=== PATIENT | female | born 1990 ===

== ENCOUNTER 2017-07-09 15:50 | Emergency (ER) | payer OTHER ==
[2017-07-09 16:48] VITALS: BMI 45.6
--- NOTE | 2017-07-09 16:59 | OBHP ---
Datetime: 07/09/2017 16:51 IP Adm Impression: , intrauterine ; No Active Labor IP Admit Plan: Observation/Evaluation Admit Comment, IP Provider: 26-year-old 010 at 28 weeks gestational age complains of vaginal s potting. Patient denies any leakage of fluids or contractions. Patient denies any dysuria. Patient re ports good movement. Past medical history none Past surgical history none Medications vitamins No known drug allergies Social history no tobacco, no drugs, no alcohol Assessment: No evidence of labor at this time. Maternal well-being and well-being reassuring at this time. Plan: Continue observation Check urinalysis Check cervical length measurement ultrasound Discussed plan with patient AND questions answered. Extremities - PN: Normal Abdomen - PN: Normal Back - PN: Normal Neurologic - PN: Normal General - PN: Normal FHR - Baseline A Provider: 130s-140s Membranes, Provider: Intact Contraction Comments Provider: none Comments, ACOG Physical Exam: Sterile speculum exam: Cervix long, closed, posterior No discharge, no fluid Small vaginal abrasion near introitus with slight amount of blood. No active bleeding. EGA AdmitDate IP: 28.0 Vital Signs Provider: Reviewed; Within Normal Limits IP Chief Complaint: Vaginal bleeding NICHD Variability Prov Fetus A: Moderate 6-25bpm FHR Category Provider Fetus A: Category I NICHD Decel Fetus A IP Provider: None Dilatation, Provider: 0 Effacement, Provider: 0 Station, Provider: -4 Genitourinary Exam: Normal
[2017-07-09 17:51] LABS: SQUAMOUS EPITHIAL 6 /hpf (0-5); URINE BACTERIA RARE (<OCC); URINE BILIRUBIN NEGATIVE (NEGATIVE); URINE BLOOD NEGATIVE (NEGATIVE); URINE CLARITY CLOUDY (Clear); URINE COLOR YELLOW (YELLOW); URINE GLUCOSE (UA) NEG (Normal); URINE LEUKOCYTE ESTERASE SMALL Leu/uL (Negative); URINE PROTEIN NEGATIVE (NEGATIVE); URINE UROBILINOGEN 0.2-1.0 mg/dL (0.2-1.0)
--- NOTE | 2017-07-09 17:59 | US ---
PROCEDURE: Limited Transvaginal Obstetric Ultrasonography HISTORY: CERVICAL LENGTH ONLY PER COMPARISON: None available. TECHNIQUE: Limited ultrasonography of the cervix was performed utilizing transvaginal technique. FINDINGS: Cervical length measures 4.0 cm with a closed internal os. No discrete cervical mass or cysts appreciated. Cephalad presentation of intrauterine noted. IMPRESSION: As above.
[2017-07-13 20:23] VITALS: BP 112/62; PULSE 74; RESP 20; TEMP 97.7; O2SAT 98
== END 2017-07-09 18:40 | disposition home or self-care (01) ==
LOC: H.EROB2 15:50
DX: O26.853 Spotting complicating pregnancy, third trimester (principal); Z3A.28 28 weeks gestation of pregnancy

== ENCOUNTER 2017-09-27 14:58 | Inpatient (IN) | payer OTHER ==
[2017-09-27 15:37] VITALS: BMI 46.4
[2017-09-27] MEDS: Lactated Ringer's 1,000 ML IV SCH (17:03)
--- NOTE | 2017-09-27 18:04 | OBADHP ---
Datetime: 09/27/2017 17:59 IP Adm Impression Other: decreased fm Admit Comment, IP Provider: Discussed with pt plan of action Admit and for cervidil Extremities - PN: Abnormal Abdomen - PN: Abnormal Breast - PN: Normal Lungs - PN: Normal Heart - PN: Normal Thyroid - PN: Normal Neurologic - PN: Normal HEENT - PN: Normal General - PN: Normal Presentation-Admit: CephALIC FHR - Baseline A Provider: 140-150 Membranes, Provider: Intact Contraction Comments Provider: irreg Comments, ACOG Physical Exam: Abd gravid NT fundus at term , pelvic as above and leg with mild earl edema but no calf tenderness or hypereflexia Gestation - Est Wks by US: 39+ IP Hx Assessment: The History has been Reviewed and is Current IP Chief Complaint: Decreased movement NICHD Variability Prov Fetus A: Moderate 6-25bpm NICHD Accel Fetus A IP Provider: 10X10 NICHD Decel Fetus A IP Provider: None Dilatation, Provider: closed Effacement, Provider: soft Genitourinary Exam: Normal DTRs - PN: Normal EGA AdmitDate IP: 39.3 IP Adm Impression: Term, intrauterine IP Admit Plan: Admit to unit; Initiate labor induction protocol Datetime: 07/09/2017 16:51 Back - PN: Normal Vital Signs Provider: Reviewed; Within Normal Limits FHR Category Provider Fetus A: Category I Station, Provider: -4
[2017-09-27 20:14] LABS: BASO # 0.1 K/uL (0.0-0.2); EOS # 0.1 K/uL (0.0-0.7); EOS % 0.7 % (0.0-4.0); HEMOGLOBIN 11.6 g/dL (12.0-16.0); LYMPH # 2.5 K/uL (1.0-4.3); LYMPH % 18.6 % (20.0-40.0); MEAN CELL VOLUME 87.4 fl (81.0-99.0); MEAN CORPUSCULAR HEMOGLOBIN 28.9 pg (27.0-31.0); MEAN CORPUSCULAR HGB CONC 33.1 g/dL (33.0-37.0); MEAN PLATELET VOLUME 8.6 fl (7.2-11.7); MONO # 1.2 K/uL (0.0-0.8); MONO % 8.9 % (0.0-10.0); NEUT # 9.6 K/uL (1.8-7.0); NEUT % 70.8 % (50.0-75.0); NRBC % 0.1 % (0.0-0.0); RBC 4.02 Mil/uL (3.80-5.20); RED CELL DISTRIBUTION WIDTH 13.6 % (11.5-14.5); WHITE BLOOD COUNT 13.5 K/uL (4.8-10.8)
[2017-09-28] MEDS: Lactated Ringer's 1,000 ML IV SCH (02:00)
--- NOTE | 2017-09-28 07:44 | OBPN ---
Datetime: 09/28/2017 07:41 IP Procedures Other: cervidil insertion IP Progress Impression: Reassuring heart rate IP Progress Plan: Continue present management; Cervical Ripening Membranes, Provider: Intact Contraction Comments Provider: irregular FHR - Baseline A Provider: 140 Gestation - Est Wks by US: 39+ IP Progress Note Comment: Cervidil was removed earlier and 2nd insert placed Continue cervical ripen ing and monitoring NICHD Accel Fetus A IP Provider: 10X10 NICHD Variability Prov Fetus A: Moderate 6-25bpm Dilatation, Provider: FT Effacement, Provider: soft NICHD Decel Fetus A IP Provider: None Datetime: 09/27/2017 17:59 Presentation-Admit: CephALIC Datetime: 07/09/2017 16:51 Vital Signs Provider: Reviewed; Within Normal Limits FHR Category Provider Fetus A: Category I Station, Provider: -4
[2017-09-29] MEDS: Lactated Ringer's 1,000 ML IV SCH ×3 (07:50→20:25)
[2017-09-29] MEDS ORDERED: cefOXitin Sodium 1 GM in Sodium Chloride 0.9% 100 ML IVPB STA (07:56)
[2017-09-29] MEDS ORDERED: Oxytocin 30 units/LR 500ML 30 U/500 ML BAG IV ONE (07:57)
[2017-09-29] MEDS ORDERED: cefOXitin IV 1 gm in Dextrose 1 GM/50 ML BAG IVPB STA (08:01)
[2017-09-29] MEDS ORDERED: cefOXitin IV 1 gm in Dextrose 1 GM/50 ML BAG IVPB ONE (08:03)
[2017-09-29] MEDS ORDERED: Oxytocin 30 units/LR 500ML 30 UNITS/500 ML BAG IV ONE (08:03)
[2017-09-29] MEDS ORDERED: Morphine 1 mg/ml preservative-free Inj(Duramorph) ONE (10:33)
--- NOTE | 2017-09-29 12:06 | OBDS ---
DELIVERY PERSONNEL Delivery Doctor: Michael Harrison MD Scrub Nurse: Nydia Cano OBT Tin Assorter: Ashlie Luke RN Anesthesiologist: Dr. [employer] Development Analyst: Fox Baez MD MATERNAL INFORMATION Delivery Anesthesia: Spinal Medications in Delivery: Pitocin 30 units Placenta Cultured: No Other Maternal Complications: decreased FM Provider Comments: see surgeons dictated note LABOR SUMMARY EDC: 10/01/2017 00:00 No. Babies in Womb: 1 Attempted: No Labor Anesthesia: None LABOR INFORMATION Reason for Induction: Other Reason for Induction Other: Decreased movement Cervical Ripening Agents: Cervidil Oxytocin: N/A Group B Beta Strep: Negative Steroids Given: None Reason Steroids Not Administered: Not Applicable MEMBRANES Membranes Rupture Method: Artificial Rupture of Membranes: 09/29/2017 11:08 Length of Rupture (hrs): 0.17 Amniotic Fluid Color: Light Meconium Amniotic Fluid Amount: Moderate Amniotic Fluid Odor: Normal STAGES OF LABOR Stage 3 hrs: 0 Stage 3 min: 1 VAGINAL DELIVERY Episiotomy: None Laceration Extension: N/A Laceration Type: None Laceration Repair: Not Applicable Sponge Count Correct: Yes Sharps Count Correct: Yes Count Comment: count correct x3 CSECTION DELIVERY Primary Indication: Failed Induction Other Primary Indication: patient request/decreased movement CSection Urgency: Elective CSection Incidence: Primary Labor: No Labor Elective: Elective CSection Incision: Lower Uterine Transverse Uterine Closure: Double-layer closure BABY A INFORMATION Delivery Date/Time: 09/29/2017 11:18 Method of Delivery: Born in Route : No : N/A Forceps: N/A Vacuum Extraction: N/A Shoulder Dystocia : No SHOULDER DYSTOCIA BABY A Infant Delivery Date/Time: 09/29/2017 11:18 PRESENTATION/POSITION BABY A Presentation: Cephalic Cephalic Presentation: Vertex Breech Presentation: N/A PLACENTA INFORMATION BABY A Placenta Delivery Time : 09/29/2017 11:19 Placenta Method of Delivery: Spontaneous Placenta Status: Delivered SCORES BABY A Heart Rate 1 min: >100 bpm Resp Effort 1 min: Good Cry Reflex Irritability 1 min: Cough or Sneeze or Pulls Away Muscle Tone 1 min: Active Motion Color 1 min: Body Storla, Extremities Blue Resuscitation Effort 1 min: Tactile Stimulation SCORE 1 MIN: 9 Heart Rate 5 min: >100 bpm Resp Effort 5 min: Good Cry Reflex Irritability 5 min: Cough or Sneeze or Pulls Away Muscle Tone 5 min: Active Motion Color 5 min: Body Storla, Extremities Blue Resuscitation Effort 5 min: Tactile Stimulation SCORE 5 MIN: 9 IDENTIFICATION/MEDS BABY A ID Band Number: [id number]
[2017-09-29] MEDS ORDERED: Oxycodone/Acetaminophen 5/325 mg Tab PO PRN (12:08)
[2017-09-29] MEDS ORDERED: cefOXitin Sodium 1 GM in Sodium Chloride 0.9% 100 ML IVPB SCH ×2 (12:15→17:00)
[2017-09-29] MEDS ORDERED: DiphenhydrAMINE 50 mg/ml Inj IVP PRN ×2 (12:49→15:36)
[2017-09-29] MEDS ORDERED: Lactated Ringer's 1,000 ML IV SCH (14:15)
[2017-09-29] MEDS: cefOXitin IV 1 gm in Dextrose 1 GM/50 ML BAG IVPB SCH (18:47)
[2017-09-29] MEDS: Oxycodone/Acetaminophen 5/325 mg Tab PO PRN (20:23)
[2017-09-30] MEDS: Oxycodone/Acetaminophen 5/325 mg Tab PO PRN ×4 (00:35→17:42)
[2017-09-30] MEDS: cefOXitin IV 1 gm in Dextrose 1 GM/50 ML BAG IVPB SCH ×2 (00:38→08:30)
[2017-09-30] MEDS: Lactated Ringer's 1,000 ML IV SCH (05:40)
[2017-09-30 06:18] LABS: HEMOGLOBIN 10.1 g/dL (12.0-16.0); MEAN CELL VOLUME 86.1 fl (81.0-99.0); MEAN CORPUSCULAR HEMOGLOBIN 29.4 pg (27.0-31.0); MEAN CORPUSCULAR HGB CONC 34.2 g/dL (33.0-37.0); RBC 3.44 Mil/uL (3.80-5.20); RED CELL DISTRIBUTION WIDTH 13.1 % (11.5-14.5); WHITE BLOOD COUNT 12.6 K/uL (4.8-10.8)
--- NOTE | 2017-09-30 07:34 | OBPPN ---
Datetime: 09/30/2017 07:29 PP Pain Prov: Within normal limits PP Pain Prov comment: Denies SOB chest or leg pains PP Nausea Prov: Denies PP Flatus Prov: No PP BM Prov: No PP Breasts Prov: Normal PP Lungs Prov: Normal PP Abdomen/Uterus Prov: Abnormal PP Lochia Prov: Normal PP Vulva/Perineum Prov: Normal PP CVA Tenderness Prov: Normal PP Extremities Prov: Normal PP C/S Incision Prov: Normal PP Progress Prov: Normal PP Comments Phys Exam Prov: breast NE, breast feeding; Abd soft ND, depressible fundus firm at umb, dressing intact no sign of active bleeding Ext no calf tenderness PP Impression Prov: Normal progression PP Plan Prov: Continue present management PP Progress Note Prov: advance diet as tolerated OOB and ambulation and encourage po fluids Vital Signs Provider PP: Reviewed
[2017-10-01] MEDS: Oxycodone/Acetaminophen 5/325 mg Tab PO PRN ×3 (00:04→23:12)
--- NOTE | 2017-10-01 13:30 | OBPPN ---
Datetime: 10/01/2017 13:23 PP Pain Prov: Within normal limits PP Pain Prov comment: no SOB,chest or leg pains PP Nausea Prov: Denies PP Flatus Prov: No PP BM Prov: No PP Nausea Prov comment: Denies C/F PP Flatus Prov comment: voiding well PP Breasts Prov: Normal PP Lungs Prov: Normal PP Abdomen/Uterus Prov: Abnormal PP Lochia Prov: Normal PP Vulva/Perineum Prov: Normal PP CVA Tenderness Prov: Normal PP Extremities Prov: Normal PP C/S Incision Prov: Normal PP Progress Prov: Normal PP Comments Phys Exam Prov: breast NE, NT; Abd soft not distended fundus firm below the umb Dressing removed no active bleeding Ext no calf tenderness PP Impression Prov: Normal progression PP Plan Prov: Continue present management PP Progress Note Prov: Dulcolax suppt this am; OOB and ambulation, increase po fluids and continue P O care IP PP Procedures: None Vital Signs Provider PP: Reviewed
--- NOTE | 2017-10-02 13:15 | OBDCSUM ---
Datetime: 07/09/2017 18:25 Disch Instr Activity: Normal activity; Bedrest; May be up to bathroom; May be up for meals; May Show er Discharge Instructions, Provider: Specific instructions as noted Discharge Diagnosis, Provider: Term Delivered Discharge Time: 10/02/2017 13:15 Disch Activity Restrictions: No exercising; No lifting; No driving; Minimize walking; Minimize stair -climbing; No sexual activity; Nothing in vagina - [place], tampons, douche Contraception after Delivery: Undecided
--- NOTE | 2017-10-02 13:15 | OBPPN ---
Datetime: 10/02/2017 13:12 PP Pain Prov: Within normal limits PP Nausea Prov: Denies PP Flatus Prov: Yes PP BM Prov: Yes PP Breasts Prov: Normal PP Heart Prov: Normal PP Lungs Prov: Normal PP Abdomen/Uterus Prov: Normal PP Lochia Prov: Normal PP Vulva/Perineum Prov: Normal PP CVA Tenderness Prov: Normal PP Extremities Prov: Normal PP C/S Incision Prov: Normal PP Progress Prov: Normal PP Impression Prov: Normal progression PP Plan Prov: Continue present management PP Progress Note Prov: stable pod3 continue present care IP PP Procedures: None Vital Signs Provider PP: Reviewed; Within Normal Limits
[2017-10-02 18:02] VITALS: BP 124/69; PULSE 96; RESP 20; TEMP 98.7; O2SAT 100
--- NOTE | 2017-10-02 20:18 | OP ---
PROCEDURE DATE: 09/29/2017 PREOPERATIVE DIAGNOSES: 1. at term. 2. Decreased movement. 3. Fail induction. 4. Maternal request. POSTOPERATIVE DIAGNOSES: 1. at term. 2. Decreased movement. 3. Fail induction. 4. Maternal request. PROCEDURE PERFORMED: Primary low transverse segment section. SURGEON: Ric Harrison MD TOUR OPERATOR: Dr. Francis and Dr Arias. Dr. Francis was present for the entire duration of the case. Photo Booth Operator is needed in opening of the abdomen, delivering of the baby, and closure of the abdomen. ANESTHESIA USED: Spinal. ANESTHESIA ADMINISTERED BY: Dr. Baez. ESTIMATED BLOOD LOSS: 800 mL. DRAINS USED: None. REPLACEMENTS USED: None. FINDINGS: 1. Delivered living baby girl. Baby appears term. Baby cries spontaneously. Director Executive [employer] in attendance. score of 9 and 9. 2. Amniotic fluid clear. 3. Placenta complete and intact. 4. Both tubes and ovaries appear grossly within normal limits to inspection bilaterally. DESCRIPTION OF PROCEDURE: The patient was taken to the operating room and placed in the operating table in supine position. Following induction of spinal anesthesia, a Castellon catheter was then inserted into the bladder and was draining clear fluid. Venodyne boots were applied to both legs and the abdomen was then draped and prepped in a usual sterile manner. Following this, we then proceeded to test anesthesia and found to be well secured, and a Pfannenstiel incision was then made using sharp dissection two fingerbreadths above the symphysis pubis. The incision was then extended down to the subcutaneous tissue also using sharp dissection. Hemostasis was obtained by means of electrocoagulation. At this time, we then proceeded to identify the fascia, was then entered at the midline. Incision in the fascia was then extended laterally on each direction. Following this, we then proceeded to identify the rectus muscle, which was then slid in the midline, exposing the peritoneum. The peritoneal layer was then picked up using two Phuong clamps, retracted superiorly, and retracted and entered using sharp dissection. Incision on the peritoneum was then extended superiorly and inferiorly under direct visualization. The bladder was then identified and was then retracted inferiorly using a [place] retractor. Following this, a low transverse segment of the uterus was then identified and the vesicouterine peritoneum covering this area was then excised using blunt dissection, a bladder flap was then created and retracted inferiorly using the same [place] retractor. An incision was then made in the low transverse segment of the uterus and upon entering the uterine cavity, clear fluid noted to be present. The incision was then extended laterally on each direction and using a manual scooping procedure, a living baby girl was then delivered. The baby appears to be in occiput posterior presentation. The baby was immediately aspirated using the bulb suction. The baby cried continuously. The umbilicus was then doubly clamped, cut, and the baby handed to the pediatric personnel who was standing by. Samples of cord blood were then obtained. The placenta was then delivered complete and intact. At this time, the uterus was then exteriorized to provide better visualization. The uterine cavity was then thoroughly cleaned using moist lap pads and the uterus massaged and contracted well. The uterine incision was then secured using multiple T clamps and approximated using 0 Vicryl suture in continuous interlocking manner. A second layer was also applied using 0 Vicryl suture in a continuous manner. Hemostasis checked and found to be well secured. The bladder flap was then approximated using 2-0 Vicryl in a continuous manner. Again, hemostasis checked and found to be well secured. Both tubes and ovaries appeared grossly within normal limits to inspection bilaterally. Free amniotic fluid and blood were then evacuated from the pelvic cavity. The pelvic cavity was irrigated using saline solution. All operative areas checked and hemostatically secured and the uterus was then allowed to be tracked back into its original place and again all operative area checked and hemostatically secured. The abdomen was then closed, started layer by layer with the peritoneum using 0 Vicryl suture in a continuous manner. Rectus muscle was also approximated in the midline using interrupted 2-0 Vicryl suture. The fascia was then identified and was then approximated using 0 Vicryl suture in a continuous manner. Fascia was then checked and found to be free of defects. Subcutaneous tissue was then irrigated using saline solution and approximated using several interrupted 2-0 plain sutures. The skin was then approximated using a 3-0 Prolene in subcuticular fashion. Steri-Strips were then applied. The patient tolerated the procedure well. There were no complications. She was transferred to the recovery room in satisfactory condition. At this time, clear fluid noted to be present in the Castellon bag. Sponge, instrument, and needle count correct x3. Ric Harrison MD [facility] # [id number] [id number]
== END 2017-10-02 13:50 | disposition home or self-care (01) | DRG 766 ==
LOC: H.EROB2 14:58 → H.L&D 16:11 → H.OB/GYN 09-29 15:23 → UNDODISIN 10-01 18:30
PROVIDERS: ADMIT Specialist; ATTEND Specialist
PROC: 4A1HXCZ Monitoring of Products of Conception, Cardiac Rate, External Approach (ICD-10-PCS; 2017-09-27)
PROC: 10D00Z1 Extraction of Products of Conception, Low, Open Approach (ICD-10-PCS; principal; 2017-09-29)
DX: O36.8190 Decreased fetal movements, unspecified trimester, not applicable or unspecified (principal); Z37.0 Single live birth; O61.9 Failed induction of labor, unspecified; Z3A.39 39 weeks gestation of pregnancy